=== PATIENT | male | born 1965 | race Caucasian/White ===

== ENCOUNTER 2018-09-21 10:10 | Emergency (ER) | payer SELFPAY ==
[~2018-09-21] VITALS: Ht 165.1 cm; Wt 72.7 kg
[2018-09-21 10:14] VITALS: BP 139/97; TEMP 99.2
[2018-09-21 11:40] VITALS: PULSE 82
== END 2018-09-21 11:40 | disposition home or self-care (01) ==
LOC: COL.ER 10:10
DX: S05.01XA Injury of conjunctiva and corneal abrasion without foreign body, right eye, initial encounter (principal); Z23 Encounter for immunization; Z87.891 Personal history of nicotine dependence; X58.XXXA Exposure to other specified factors, initial encounter